=== PATIENT | female | born 1970 | race Two or more races ===

== ENCOUNTER 2021-09-15 14:25 | Emergency (ER) | payer MEDICAID ==
[~2021-09-15] VITALS: Ht 165.1 cm; Wt 77.1 kg
[2021-09-15 15:25] VITALS: BP 138/72
[2021-09-15] MEDS ORDERED: IBUPROFEN 800 MG TAB PO ONE (17:00)
[2021-09-15] MEDS ORDERED: IBUP800T27 PO (17:19)
== END 2021-09-15 17:28 | disposition home or self-care (01) ==
LOC: ER 14:25
DX: M19.072 Primary osteoarthritis, left ankle and foot (principal)
CPT/HCPCS: 73630